=== PATIENT | male | born 2000 | race Two or more races ===

== ENCOUNTER 2021-04-03 14:29 | Emergency (ER) | payer SELFPAY ==
[~2021-04-03] VITALS: Ht 180.3 cm; Wt 65.0 kg
[2021-04-03 14:41] VITALS: BP 144/78
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
[2021-04-03] MEDS: LIDOCAINE 1% Multi-Dose 20 ML VIAL. INJ ONE (15:05)
[2021-04-03] MEDS: DIPH,PERTUSS(ACELL),TET VAC/PF 0.5 ML SYRINGE. VAX IM ONE (15:06)
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
== END 2021-04-03 16:13 | disposition home or self-care (01) ==
LOC: ER 14:29
DX: S61.012A Laceration without foreign body of left thumb without damage to nail, initial encounter (principal); S21.111A Laceration without foreign body of right front wall of thorax without penetration into thoracic cavity, initial encounter; W26.0XXA Contact with knife, initial encounter; Y93.89 Activity, other specified; Y92.89 Other specified places as the place of occurrence of the external cause; Y99.8 Other external cause status
CPT/HCPCS: 12002; 71045; 90471; 90715; 99283; J3490

== ENCOUNTER 2021-04-10 13:08 | Emergency (ER) | payer SELFPAY ==
[~2021-04-10] VITALS: Ht 180.3 cm; Wt 77.0 kg
[2021-04-10 13:19] VITALS: BP 137/75
--- NOTE | 2021-04-10 14:05 | PHYS DOC ---
Past Medical History Past Surgical History: No Surgical History (FAROOQ DIAZ) Smoking Status: Never Smoker Alcohol Use: Occasionally (FAROOQ DIAZ) General Adult EDM: Chief Complaint: SUTURE/STAPLE REMOVAL HPI: HPI: Patient is a 20 year old male who presents for suture removal. Patient states his initial injury was due to a knife that slipped, and he accidentally cut his left thumb and his chest. Patient does not report any complications with healing. Patient has no other complaints at this time. (FAROOQ DIAZ) Review of Systems: Review of Systems: ROS negative except as mentioned in HPI. (FAROOQ DIAZ) Heart Score: C/O Chest Pain: No (FAROOQ DIAZ) Allergies: Allergies: Allergies Coded Allergies Type Severity Reaction Last Updated Verified No Known Drug Allergies 04/03/21 No (FAROOQ DIAZ) Physical Exam: PE: Constitutional: Well developed, well nourished, no acute distress, non-toxic appearance. Cardiovascular: Heart rate regular rhythm, no murmur Lungs & Thorax: Bilateral breath sounds clear to auscultation. Skin: Two well-approximated, well-healed lacerations noted on left digit 1 and right chest wall. Skin otherwise warm, dry, no erythema, no rash. (FAROOQ DIAZ) Current Patient Data: Vital Signs: Vital Signs Date Time Temp Pulse Resp B/P (MAP) Pulse Ox O2 Delivery O2 Flow Rate FiO2 04/10/21 13:19 98.6 62 16 137/75 (95) 99 Room Air 98.6 (FAROOQ DIAZ) Course & Med Decision Making: Course & Med Decision Making Pertinent Labs and Imaging studies reviewed. (See chart for details) Patient presents for suture removal. Wounds appear well-healed without dehiscence or signs of infection. Sutures removed and patient discharged home. (FAROOQ DIAZ) Dragon Disclaimer: Dragon Disclaimer: This electronic medical record was generated, in whole or in part, using a voice recognition dictation system. (FAROOQ DIAZ) Suture/Staple Removal Indication: Sutures on left digit 1 and anterior right chest. Procedure: The patient was placed in the appropriate position and the sutures were removed without difficulty. Other items: The patient tolerated the procedure very. Complications: No complications. (FAROOQ DIAZ) Departure Departure Impression: Primary Impression: Visit for suture removal Disposition: HOME / SELF CARE / HOMELESS Condition: STABLE Referrals: NO PCP (PCP) Patient Instructions: Suture Removal Additional Instructions: Your sutures were removed today without complication. Please return to the emergency department if the wounds reopen. Attending Signature Attending Signature I have reviewed the PA/COUNTER HELPER's note and plan of care. I was available for consultation as needed during the patient's visit in the emergency department. I agree with the clinical impression, plan, and disposition. (PATI PAULINO DO) FAROOQ DIAZ Apr 10, 2021 14:05 PATI PAULINO DO Apr 10, 2021 17:02
== END 2021-04-10 14:15 | disposition home or self-care (01) ==
LOC: ER 13:08
DX: S21.111D Laceration without foreign body of right front wall of thorax without penetration into thoracic cavity, subsequent encounter (principal); W26.0XXD Contact with knife, subsequent encounter
CPT/HCPCS: 99281

== ENCOUNTER 2021-05-23 00:09 | Emergency (ER) | payer MEDICAID ==
[~2021-05-23] VITALS: Ht 180.3 cm; Wt 81.7 kg
[2021-05-23 00:11] VITALS: BP 134/83
[2021-05-23] MEDS ORDERED: LIDOCAINE 1% PF 5 ML VIAL. INJ ONE (00:30)
[2021-05-23] MEDS ORDERED: CEPH500C PO (00:34)
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
== END 2021-05-23 01:11 | disposition home or self-care (01) ==
LOC: ER 00:09
DX: S41.111A Laceration without foreign body of right upper arm, initial encounter (principal); Z59.00 Homelessness unspecified; Y28.8XXA Contact with other sharp object, undetermined intent, initial encounter; Y93.89 Activity, other specified; Y92.89 Other specified places as the place of occurrence of the external cause; Y99.8 Other external cause status
CPT/HCPCS: 12001; 99283; J3490

== ENCOUNTER 2021-09-11 21:46 | Emergency (ER) | payer MEDICAID ==
[~2021-09-11] VITALS: Ht 180.3 cm; Wt 79.5 kg
[~2021-09-11 21:46] MED LIST: CEPH500C PO
--- NOTE | 2021-09-11 23:34 | PHYS DOC ---
Past Medical History Past Surgical History: No Surgical History Smoking Status: Never Smoker Alcohol Use: Occasionally General Adult HPI: HPI: Patient is a 20 year old male patient who presents with several weeks of intermittent dizziness, which he describes as lightheaded symptoms. He denies symptoms of vertigo. He does report having a mild headache. He has had this headache intermittently for almost a year. He reports that about 3 months ago he moved here from [place]. He reports that about 4 months ago, he had an ER visit where and he had a CT of his head, which was reportedly negative. He denies chest pain, palpitations, dyspnea, abdominal pain, nausea, vomiting. Denies fall, head injury or syncope. He denies numbness, tingling, motor weakness. He reports that he is eating and drinking normally. He reports that he he is getting plenty of sleep. He does report that "I just do not feel right." He denies suicidal ideation or homicidal ideation. He does seem anxious, and when asked if he has any anxiety, he denies this. Also, he called into work tonight, he requests a work note. Review of Systems: Review of Systems: Constitutional: Denies fever or chills. [] Eyes: Denies change in visual acuity. [] HENT: Denies nasal congestion or sore throat. [] Respiratory: Denies cough or shortness of breath. Denies palpitations or syncope. Cardiovascular: Denies chest pain or edema. [] GI: Denies abdominal pain, nausea, vomiting, or diarrhea. : Denies urinary symptoms Musculoskeletal: Denies back pain or joint pain. [] Integument: Denies rash. [] Neurologic: Denies headache, focal weakness or sensory changes. He does report lightheadedness/dizziness. Denies syncope. Denies vertigo symptoms Psychiatric: Denies depression or anxiety. [] Heart Score: C/O Chest Pain: No Risk Factors: Risk Factors: DM, Current or recent (<one month) smoker, HTN, HLP, family history of CAD, obesity. Risk Scores: Score 0 - 3: 2.5% MACE over next 6 weeks - Discharge Home Score 4 - 6: 20.3% MACE over next 6 weeks - Admit for Clinical Observation Score 7 - 10: 72.7% MACE over next 6 weeks - Early Invasive Strategies Allergies: Allergies: Allergies Coded Allergies Type Severity Reaction Last Updated Verified No Known Drug Allergies 04/03/21 No Physical Exam: PE: Constitutional: Well developed, well nourished, no acute distress, non-toxic appearance. [] HENT: Normocephalic, atraumatic, oropharynx is patent and clear, mucous membranes are moist. No evidence of facial or oral trauma or edema. TMs are clear bilaterally. Nares are patent and clear Eyes: PERRL, EOMI, conjunctiva normal, no discharge. No scleral icterus. No nystagmus. Neck: Normal range of motion, no tenderness, supple, no stridor. Midline tenderness or step-offs. No meningismus. Cardiovascular:Heart rate regular rhythm, was 2 radial pulses bilaterally Lungs & Thorax: Bilateral breath sounds clear to auscultation [] Abdomen: Abdomen is soft, nondistended, nontender to palpation peer Skin: Warm, dry, no erythema, no rash. [] Back: No tenderness, no CVA tenderness. [] Extremities: No tenderness, no cyanosis, no clubbing, ROM intact, no edema. No calf tenderness Neurologic: He is awake, alert, oriented x3, cranial nerves II through XII grossly intact, 5 out of 5 motor strength all 4 extremities, gait is steady, nonantalgic, no gait ataxia, speech is clear and fluent, sensation is grossly intact, nonfocal neurologic exam Psychologic: Anxious but cooperative. Denies SI or HI. EKG: EKG: EKG is interpreted at 0009 Rhythm is sinus Rate is 84 bpm No STEMI No acute ischemia Radiology/Procedures: Radiology/Procedures: IMAGING REPORT Signed PATIENT: MIMA CHAVIRA ACCOUNT: [id number] : 2000 LOCATION: ER AGE: 20 SEX: M EXAM STATUS: PRE ER ORD. PHYSICIAN: MANUELA CLEARY DO REASON: dizziness PROCEDURE: CT HEAD WO CONTRAST CT HEAD/BRAIN WO History: Dizziness Comparison: None. Technique: Noncontrast CT imaging was performed of the head. Findings: No intracranial hemorrhage. No mass effect. No hydrocephalus. No evidence of acute territorial infarction. Imaged orbits are unremarkable. Imaged paranasal sinuses and mastoid air cells are clear. The scalp and calvarium are unremarkable. Impression: 1. No acute intracranial abnormality. ----- Exposure: One or more of the following individualized dose reduction techniques were utilized for this examination: 1. Automated exposure control 2. Adjustment of the mA and/or kV according to patient size 3. Use of iterative reconstruction technique. Electronically signed by: Max Garcia MD (09/12/2021 12:13 AM) [facility] DICTATED and SIGNED BY: MAX GARCIA MD DATE: 09/12/21 0013 Course & Med Decision Making: Course & Med Decision Making Pertinent Labs and Imaging studies reviewed. (See chart for details) I discussed the findings, differential diagnosis and plan of care with him. He requests a work note for today. I told him to contact your primary care physician for follow-up. He is given outpatient resources for this. Return precautions are given. Lmon Disclaimer: Pratik Disclaimer: This electronic medical record was generated, in whole or in part, using a voice recognition dictation system. Departure Departure Impression: Primary Impression: Dizziness Disposition: 01 HOME / SELF CARE / HOMELESS Condition: STABLE Referrals: NO PCP (PCP) Patient Instructions: Dizziness Additional Instructions: Please return to the ER if you develop any acute changes in symptoms, chest pain, shortness of breath, vomiting, fall, head injury, uncontrolled vomiting, dehydration, focal weakness or other concerns. Follow-up with a primary care physician. MANUELA CLEARY DO Sep 11, 2021 23:34
--- NOTE | 2021-09-12 00:16 | RAD ---
CT HEAD/BRAIN WO History: Dizziness Comparison: None. Technique: Noncontrast CT imaging was performed of the head. Findings: No intracranial hemorrhage. No mass effect. No hydrocephalus. No evidence of acute territorial infar ction. Imaged orbits are unremarkable. Imaged paranasal sinuses and mastoid air cells are clear. The scalp a nd calvarium are unremarkable. Impression: 1. No acute intracranial abnormality. ----- Exposure: One or more of the following individualized dose reduction techniques were utilized for thi s examination: 1. Automated exposure control 2. Adjustment of the mA and/or kV according to patient size 3. Use of iterative reconstruction technique. Electronically signed by: Max Garcia MD (09/12/2021 12:13 AM) [facility]
[2021-09-12 00:28] LABS: BARBITURATES NEG (NEG); BENZODIAZEPINES NEG (NEG); CANNABINOIDS NEG (NEG); COCAINE NEG (NEG); METHADONE NEG (NEG); OPIATES NEG (NEG); PHENCYCLIDINE NEG (NEG)
[2021-09-12 00:30] LABS: AMPHETAMINE/METHAMPHETAMINE NEG (NEG)
[2021-09-12 00:33] LABS: BILIRUBIN,URINE NEGATIVE (NEG); CLARITY,URINE CLEAR; COLOR,URINE YELLOW; NITRITE,URINE NEGATIVE (NEG); PH,URINE 6.5 (<5.0-8.0); PROTEIN,URINE NEGATIVE (NEG-TRACE); UROBILINOGEN,URINE 0.2 mg/dL (0.2 mg/dL)
[2021-09-12 00:34] LABS: BACTERIA,URINE 0 /HPF (0-FEW); RBC,URINE 0 /HPF (0-2); WBC,URINE 0 /HPF (0-4)
[2021-09-12 00:34] LABS: BASO # 0.1 x10^3/uL (0.0-0.2); BASO % 1 % (0-3); EOS # 0.2 x10^3/uL (0.0-0.7); EOS % 3 % (0-3); HEMATOCRIT 44.4 % (39.0-53.0); LYMPH # 2.2 x10^3/uL (1.0-4.8); LYMPH % 26 % (24-48); MEAN CORPUSCULAR HEMOGLOBIN 29 pg (25-35); MEAN CORPUSCULAR HGB CONC 34 g/dL (31-37); MEAN CORPUSCULAR VOLUME 86 fL (79-100); MONO # 0.5 x10^3/uL (0.0-1.1); MONO % 6 % (0-9); NEUT # 5.4 x10^3/uL (1.8-7.7); NEUT % 65 % (31-73); PLATELET COUNT 350 x10^3/uL (140-400); RED BLOOD COUNT 5.15 x10^6/uL (4.30-5.70); RED CELL DISTRIBUTION WIDTH 13.3 % (11.5-14.5); WHITE BLOOD COUNT 8.4 x10^3/uL (4.0-11.0)
[2021-09-12 00:43] LABS: CALCIUM 8.8 mg/dL (8.5-10.1); CREATININE 0.8 mg/dL (0.7-1.3); GFR 123.2
[2021-09-12 01:34] VITALS: BP 128/93
--- NOTE | 2021-09-12 10:34 | EKG ---
[facility] [address] [place] [address] Test Date: 2021-09-12 Test Time: 00:04:37 Pat Name: MIMA CHAVIRA Department: Room: Gender: M Director Food Safety: : 2000 Requested By: MANUELA CLEARY Order Number: [id number] Reading MD: Dong Man MD Measurements Intervals [place] Rate: 77 P: IA: QRS: 28 QRSD: 82 T: 31 QT: 354 QTc: 402 Interpretive Statements SR Electronically Signed On 09-20-2021 7:37:42 CDT by Dong Man MD
== END 2021-09-12 01:45 | disposition home or self-care (01) ==
LOC: ER 21:46
DX: R42 Dizziness and giddiness (principal); R51.9 Headache, unspecified
CPT/HCPCS: 36415; 70450; 80048; 80307; 81001; 83735; 84443; 85025; 93005; 99285; G0480